=== PATIENT | male | born 1990 | race American Indian/Alaskan Native ===

== ENCOUNTER 2021-06-12 14:44 | Emergency (ER) | payer SELFPAY ==
[2021-06-12 15:30] VITALS: BP 111/50
--- NOTE | 2021-06-12 18:20 | Emergency Department Report ---
Eye Injury/Foreign Body - HPI Duration: 2 Days Eye Location: Right Severity: Mild Tetanus Status: Up to Date Eye Symptoms: Eye Pain: Yes, Blurred Vision: No, Eye Redness: No, Grinding/Hammering Metal: No, Used Eye Protection: No, Contact Lens Use: No, Recalls Injury: No, Photophobia: No Other History: 31-year-old male presents to the ED with a nodule noted over the right eyelid. Patient states that he has had this similar complaint in the past. Patient denies any blurred vision headache. Patient state he has been applying warm compress with mild relief. No acute distress noted no ill a ppearance noted. Patient denies any sensation to the eye. Patient denies any drainage to the eye. ED Review of Systems ROS: Stated complaint: EYE SWOLLEN Other details as noted in HPI Constitutional: denies: chills, fever Eyes: other. denies: eye pain, eye discharge, vision change ENT: denies: ear pain, throat pain Respiratory: denies: cough, shortness of breath, wheezing Cardiovascular: denies: chest pain, palpitations Endocrine: no symptoms reported Gastrointestinal: denies: abdominal pain, nausea, diarrhea Genitourinary: denies: urgency, dysuria Musculoskeletal: denies: back pain, joint swelling, arthralgia Skin: denies: rash, lesions Neurological: denies: headache, weakness, paresthesias Psychiatric: denies: anxiety, depression Hematological/Lymphatic: denies: easy bleeding, easy bruising ED Past Medical Hx - Medications Home Medications: Home Medications Medication Instructions Recorded Confirmed Last Taken Type Erythromycin [Erythromycin Ophth 10 applic OP TID 7 Days #1 tube 06/12/21 Unknown Rx Oint] Eye Injury Exam - Exam General: Vital signs noted. No distress. Alert and acting appropriately. - Visual Acuity Right Vision Acuity Degree: 20/30 Eye Exam: Neither Injection, Neither Chemosis, Neither Abnormal Pupil, Neither EOMI, Neither Eye Foreign Body, Neither Lid Foreign Body, Neither Mucous Discharge, Neither Purulent Discharge ED Course Vital Signs 06/12/21 15:26 Temperature 98.8 F Pulse Rate 76 Respiratory 17 Rate Blood Pressure 111/50 [Right] O2 Sat by Pulse 100 Oximetry ED Medical Decision Making - Medical Decision Making 31-year-old male presents to the ED with a nodule noted over the right eyelid. Patient states that he has had this similar complaint in the past. Patient denies any blurred vision headache. Patient state he has been applying warm compress with mild relief. No acute distress noted no ill appearance noted. Valentín cerda denies any sensation to the eye. Patient denies any drainage to the eye. Physical examination tender nodule noted over the right eye. Patient states painful to touch. Visual acuity 20/30 in both eyes. Right eye 2020. Left eye 20/20 Rechecked the patient is resting quietly quietly and comfortable and feeling better. I discussed the results of diagnostic study, my clinical impression and the plan for further treatment with the patient. Patient agrees with plan and discharge at this present time. All question addressed. I have given the patient instruction regarding a diagnosis ,expectation ,follow- up and return precaution. I explained to the patient that emergent condition may arise and to return to the ED for new worsen and any new persisting condition. I have explained the importance of following up with the primary care physician or referral physician listed below has instructed. The patient verbalized understanding of discharge instruction. Critical care attestation.: If time is entered above; I have spent that time in minutes in the direct care of this critically ill patient, excluding procedure time. ED Disposition Clinical Impression: Hordeolum Qualifiers: Hordeolum type: externum Laterality: right Eyelid: upper Qualified Code(s): H00.011 - Hordeolum externum right upper eyelid Disposition: 01 HOME / SELF CARE / HOMELESS Is pt being admited?: No Does the pt Need Aspirin: No Condition: Stable Instructions: Stye Additional Instructions: Take medication as prescribed Apply warm compress to the eye 15 minutes 4 times a day Daily cleanse of eyelid Prescriptions: Erythromycin [Erythromycin Ophth Oint] 10 applic OP TID 7 Days #1 tube Referrals: SRAVAN YORK MD [Staff Physician] - 3-5 Days Forms: Work/School Release Form(ED)
== END 2021-06-12 16:00 | disposition home or self-care (01) ==
LOC: ED 14:44
DX: H00.013 Hordeolum externum right eye, unspecified eyelid (principal)
CPT/HCPCS: 99281; 99282